=== PATIENT | female | born 1980 | race Caucasian/White ===

== ENCOUNTER → 2021-10-26 | Outpatient (CLI) | payer BC ==
--- NOTE | 2021-10-26 16:05 | Diagnostic Imaging Report ---
INDICATION: Persistent cough for a month. EXAMINATION: Two-view chest, 10/26/2021. FINDINGS: Three views of the chest. Vague airspace opacity noted at the left lung base, which could be atelectasis with mild infiltrate not excluded; correlate with symptoms. Remaining lungs appear clear. There are no effusions. There is no pneumothorax. Heart and pulmonary vasculature are normal. IMPRESSION: 1. Questionable vague atelectasis or infiltrate at the left lung base. Dictated by: Dictated on workstation # [id number]
== END ==
LOC: RAD FS 14:06
PROVIDERS: ATTEND Nurse Practitioner Family
DX: J40 Bronchitis, not specified as acute or chronic (principal)
CPT/HCPCS: 71046